=== PATIENT | male | born 1990 | race Caucasian/White ===

== ENCOUNTER 2024-11-07 18:07 | Emergency (ER) | payer OTHER, SELFPAY ==
[2024-11-07 18:10] VITALS: BP 166/105
[2024-11-07 18:28] LABS: % Basophils 0.4 % (0-2); % Eosinophils 0.5 % (0-6); % Immature Granulocytes 0.3 % (0-0.5); % Lymphocytes 32.2 % (20.5-51.1); % Monocytes 5.6 % (1.7-9.3); Absolute Eosinophils 0.1 10^3/uL (0-0.7); Absolute Lymphocytes 3.2 10^3/uL (1.2-3.4); Absolute Monocytes 0.6 10^3/uL (0.1-0.6); Absolute Neutrophils 6.1 10^3/uL (1.4-6.5); Hematocrit 43.8 % (39.0-52.0); Hemoglobin 15.9 g/dL (13.0-18.0); Mean Corp Hgb Conc. 36.3 g/dL (33.0-37.0); Mean Corpuscular Hgb 30.8 pg (27.0-31.0); Mean Corpuscular Volume 84.9 fL (80.0-94.0); Mean Platelet Volume 9.2 fL (7.4-10.4); Nucleated Red Blood Cells % 0 % (-); Platelet Count 300 10^3/uL (130-400); Red Blood Cell Count 5.16 10^6/uL (4.70-6.10); Red Cell Dist. Width 11.9 % (11.5-14.5); Urine Albumin Negative (Neg - Trace); Urine Bilirubin Negative (Negative); Urine Character Clear (Clear); Urine Color Yellow; Urine Glucose Negative (Negative); Urine Ketone Negative (Negative); Urine Leukocyte Negative (Negative); Urine Nitrite Negative (Negative); Urine Occult Blood Negative (Negative); Urine Specific Gravity 1.005 (<1.030); Urine Urobilinogen Negative (Neg - 1+)
[2024-11-07 18:42] LABS: ALT (SGPT) 44 U/L (0-50); AST (SGOT) 30 U/L (17-59); Albumin 5.1 g/dl (3.5-5.0); Alkaline Phosphatase 64 U/L (38-126); Blood Urea Nitrogen 9 mg/dl (9-20); Carbon Dioxide 26 mmol/L (22-30); Chloride 105 mmol/L (98-107); Glucose 93 mg/dl (70-99); Lipase 68 U/L (23-300); Potassium 3.9 mmol/L (3.5-5.1); Sodium 139 mmol/L (135-145); Total Bilirubin 2.3 mg/dl (0.2-1.3); Total Protein 7.8 g/dl (6.3-8.2); eGFR > 60.00
--- NOTE | 2024-11-07 20:03 | ED.GENMED ---
History of Present Illness
General
Chief Complaint: Abdominal Symptoms
Source: patient
Exam Limitations: none
Time Seen by Provider: 11/07/24 19:30
History of Present Illness
History of Present Illness:
34yoM with a history of anxiety presenting for evaluation of groin pain. Symptoms have been ongoing for about 3 weeks. He reports pain in his left groin and low back when he coughs. He is also having some discomfort in his scrotum. Patient
believes he has a hernia because he felt a lump yesterday. Pain is worse with movement of the left leg. Additionally, he is having abdominal bloating and some constipation. He has been seen by his PCP for his symptoms. He had a CT scan about 1.5
weeks ago which did not show any hernia as far as patient is aware. No fevers or difficulty urinating.
Past History
Past History
ED Past Medical History: Other (Substance abuse, maintained on Suboxone.)
ED Past Surgical History: None
Social History
Tobacco: Former smoker
Alcohol: Occasional
Drug: Former user
Personal: Single
Living: with family
Employment: Employed
Family History
Family History: Other (Noncontributory)
Phy Exam
General Physical Exam
General Presentation: well appearing and no apparent distress
General Skin: warm and dry
General Habitus: normal
General Mental: alert
ENT Exam
ENT Exam: normocephalic
Pulmonary Exam
Pulmonary Exam: no respiratory distress
Gastrointestinal Exam
Gastrointestinal Exam: non tender, soft and non distended
Genitourinary Exam Male
Exam Male: normal external genitalia, normal testicular exam, no testicular swelling and other (+L inguinal tenderness. No palpable hernia. No scrotal swelling or tenderness.)
Neurological Exam
Neurological Exam: alert
Jessica Coma Scale
Eye Opening: Spontaneous
Verbal Response: Oriented
Motor Response: Obeys Commands
GCS Total Score: 15
Skin Exam
Skin Exam: normal color and warm/dry
Psychiatric Exam
Psychiatric Exam: normal mood/affect
Course
Orders/Labs/Results
Orders:
Orders
11/07/24 18:20
Complete Blood Count/With Diff Urgent
Comprehensive Metabolic Panel Urgent
Lipase Urgent
Urinalysis Reflex To Culture Urgent
Date Specimen was Collected: 11/07/24
Time Specimen was Collected: 18:14
11/07/24 20:13
Scrotum US [US Scrotum] Urgent
Comment:
Reason For Exam: L testicular pain
US Groin (Imaging Only) LT Urgent
Comment:
Reason For Exam: pain, possible hernia
Abnormal Lab Results
11/07/24
18:20
Total Bilirubin 2.3 H mg/dl
(0.2-1.3)
Albumin 5.1 H g/dl
(3.5-5.0)
11/07/24 18:20
11/07/24 18:20
Vital Signs
Initial and Last Documented VS:
Initial Vital Signs
Pulse Resp BP Pulse Ox
82 18 166/105 99
11/07/24 18:10 11/07/24 18:10 11/07/24 18:10 11/07/24 18:10
Last Documented Vital Signs
Temp Pulse Resp BP Pulse Ox
98.2 F 82 18 166/105 99
11/07/24 18:12 11/07/24 18:10 11/07/24 18:10 11/07/24 18:10 11/07/24 18:10
MDM/Problems Addressed
Differential Diagnosis Includes:
34yoM here with L groin pain x 3 weeks. Worse with movement and coughing. Believes he has a hernia. Has been seen by PCP and had a CT scan recently which was reportedly normal. No urinary complaints. He is hypertensive with otherwise stable vitals.
He is well appearing in no distress. There is inguinal tenderness on exam. No skin changes or palpable hernia. Differential diagnosis includes: musculoskeletal, hernia, UTI
Initial ED plan: Labs obtained in triage. White count and renal function normal. UA bland without signs of infection. Will check groin and scrotal ultrasound.
*Critical Care Note
Total Time (30-74mins, 75-104mins- exclusive of procedures): Not Applicable
Update Note
Update Note:
Ultrasound shows several subcentimeter lymph nodes without suspicious features. No evidence of hernia and scrotal ultrasound negative. Suspect musculoskeletal pain. Supportive care discussed. Advised follow-up with PCP. Patient discharged in
stable condition.
ED Attending Note
-
Portions of this chart may have been created with voice recognition software.� Occasional wrong word or��sound alike� substitutions may have occurred due to the inherent limitations of voice recognition software.
Discharge Plan
Departure
Patient Disposition: Home (Routine Discharge)
Date of Disposition: 11/07/24
Time of Disposition: 21:36
Patient with high blood pressure during this ER visit?: Yes
Discharge Problem:
Left groin pain
Instructions: Groin Strain (DC)
Prescriptions:
No Action
buprenorphine-naloxone [Suboxone] 1 FILM film
1 film sublingual DAILY
alprazolam [Xanax] 0.5 mg tablet
0.5 mg PO TID PRN (Reason: anxiety) Qty: 7 0RF
Referrals:
Vear Jensen PA-C [Family Provider, Family Practice]
Activity Restrictions/Additional Instructions:
Take Tylenol and ibuprofen as needed for pain. Apply heat to affected area.
Please follow-up with your family doctor next week. Return to the ER with any new or worsening symptoms.
Interventions
Interventions:
*Risk Screen - Suicide Last Done: 11/07/24 18:12
*General Assessment Last Done: 11/07/24 18:12
*Neglect/Abuse Screening Last Done: 11/07/24 18:12
*ED- Fall Risk Assessment Last Done: 11/07/24 20:15
*ED COVID-19 Vaccine History Last Done: 11/07/24 20:15
*Nursing Disposition Last Done: 11/07/24 21:47
RE-Mtofnx-Hwecvfirpt Assessment Last Done: 11/07/24 20:15
Discharge Date and Time
Discharge Date/Time: 11/07/24 21:47
Print Language: SYRIAC
== END 2024-11-07 21:47 | disposition home or self-care (01) ==
LOC: EMR 18:07
PROVIDERS: Emergency Medicine; EMERGENCY PHYSICIAN Emergency Medicine; FAMILY PHYSICIAN Student in an Organized Health Care Education/Training Program
DX: R10.32 Left lower quadrant pain (principal); F41.9 Anxiety disorder, unspecified; K59.00 Constipation, unspecified; Z87.891 Personal history of nicotine dependence
CPT/HCPCS: 99284; 76870; 76882; 80053; 81003; 83690; 85025; 93976

== ENCOUNTER 2024-11-27 13:51 | Emergency (ER) | payer OTHER, SELFPAY ==
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
[2024-11-27 15:01] VITALS: BP 137/99
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
[2024-11-27 16:47] LABS: % Basophils 0.3 % (0-2); % Eosinophils 0.4 % (0-6); % Immature Granulocytes 0.3 % (0-0.5); % Lymphocytes 26.5 % (20.5-51.1); % Monocytes 7.3 % (1.7-9.3); % Neutrophils 65.2 % (42.2-75.2); Absolute Monocytes 0.8 10^3/uL (0.1-0.6); Absolute Neutrophils 7.3 10^3/uL (1.4-6.5); Hemoglobin 16.4 g/dL (13.0-18.0); Mean Corp Hgb Conc. 36.4 g/dL (33.0-37.0); Mean Corpuscular Hgb 31.2 pg (27.0-31.0); Mean Corpuscular Volume 85.6 fL (80.0-94.0); Mean Platelet Volume 9.3 fL (7.4-10.4); Nucleated Red Blood Cells % 0 % (-); Platelet Count 293 10^3/uL (130-400); Red Blood Cell Count 5.26 10^6/uL (4.70-6.10); Red Cell Dist. Width 12.2 % (11.5-14.5); White Blood Cell Count 11.2 10^3/uL (4.8-10.8)
[2024-11-27] MEDS: NICODERM TRANSDERMAL 21 MG TRANSDERM (17:02)
[2024-11-27 17:12] LABS: ALT (SGPT) 43 U/L (0-50); AST (SGOT) 51 U/L (17-59); Albumin 5.3 g/dl (3.5-5.0); Alkaline Phosphatase 59 U/L (38-126); Blood Urea Nitrogen 12 mg/dl (9-20); Carbon Dioxide 26 mmol/L (22-30); Chloride 104 mmol/L (98-107); Creatine Phosphokinase 1016 U/L (55-170); Glucose 121 mg/dl (70-99); Potassium 3.7 mmol/L (3.5-5.1); Sodium 141 mmol/L (135-145); Total Bilirubin 2.4 mg/dl (0.2-1.3); Total Protein 8.1 g/dl (6.3-8.2); eGFR > 60.00
[2024-11-27 17:14] LABS: Alcohol None Detected
[2024-11-27] MEDS: ATIVAN 2 MG IM (17:31)
[2024-11-27] MEDS: HALDOL 5 MG IM (17:31)
[2024-11-27 18:00] VITALS: BP 143/81
[2024-11-27 22:30] VITALS: BP 139/81
--- NOTE | 2024-11-27 22:49 | EDRN ---
Report received, introduced myself to patient, patient was calm when talking with me, allowed me to get vital signs which are stable, we discussed the restraints and goal of getting them off, removed the right wrist restraint and patient rolled onto
his left side, offered him some water which he accepted, will continue to re-assess for the need for restraints on and to try to remove them.
[2024-11-28] MEDS: ATIVAN 2 MG PO (00:33)
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
--- NOTE | 2024-11-28 04:45 | EDRN ---
Patient restless and trying to take off his restraint, and getting little restless and agitated with it, patient was spoken to in a calming voice and provided with another warm blanket
[2024-11-28 07:15] VITALS: BP 130/83
[2024-11-28 07:51] LABS: Amphetamines Negative (Negative); Barbiturates Negative (Negative); Benzodiazepines Positive (Negative)
[2024-11-28 07:52] LABS: Buprenorphine Negative (Negative); Cocaine Negative (Negative); Marijuana Negative (Negative); Methadone Negative (Negative); Methamphetamines Negative (Negative); Opiates Negative (Negative); Phencyclidine Negative (Negative); Tricyclic Antidepressants Negative (Negative)
[2024-11-28 08:11] LABS: Creatine Phosphokinase 1142 U/L (55-170)
[2024-11-28 08:12] LABS: Fentanyl, Urine Negative (Negative)
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
[2024-11-28] MEDS: ATIVAN 1 MG PO (09:17)
[2024-11-28] MEDS: HALDOL 5 MG PO (09:18)
[2024-11-28] MEDS: NICORETTE 4 MG PO (09:19)
[2024-11-28 11:02] VITALS: BP 130/74
[2024-11-28] MEDS: NICODERM TRANSDERMAL TRANSDERM (11:41)
[2024-11-28 13:23] LABS: Creatine Phosphokinase 1436 U/L (55-170)
[2024-11-28 14:04] VITALS: BP 128/72
--- NOTE | 2024-11-28 15:24 | ED.CRISIS ---
ED Crisis Note
ED Crisis Note
Subjective:
34-year-old male presented with acute psychosis. Calm cooperative currently but was initially requiring restraints both chemical and physical.
Objective:
Patient resting comfortably in bed. Not in acute distress. Vital signs are normal.
Assessment/Plan:
34-year-old male presents with psychosis. Much more calm and cooperative now. His initial medical assessment did reveal mild rhabdomyolysis. He was medically cleared for psychiatric placement however despite reassurance to psychiatric facilities
that he has normal renal function and is medically cleared, they are hesitant to take him with elevated CPK. Will continue to trend CPK. Provide IV fluids. Discussed with hospitalist for consultation.
[2024-11-28] MEDS: NSS 1000 IV ×2 (15:36→18:19)
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
[2024-11-28] MEDS: NICODERM TRANSDERMAL 21 MG TRANSDERM (17:40)
[2024-11-28 17:56] VITALS: BP 128/70
[2024-11-28 18:07] LABS: Creatine Phosphokinase 1374 U/L (55-170)
[2024-11-28 19:53] LABS: Creatine Phosphokinase 1311 U/L (55-170)
[2024-11-28 20:30] VITALS: BP 122/74
[2024-11-28 23:42] VITALS: BP 151/88
[2024-11-29] MEDS: NSS IV (02:58)
[2024-11-29 08:30] VITALS: BP 124/68
[2024-11-29 09:09] LABS: Creatine Phosphokinase 1489 U/L (55-170)
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
[2024-11-29] MEDS: NICODERM TRANSDERMAL TRANSDERM (17:28)
--- NOTE | 2024-11-29 17:56 | EDRN ---
Pt calm and cooperative, eating dinner, didn't want his Nicotine patch. Pt asking to take a shower, per charge gang weigher will wait for available room with a shower, pt made aware.
[2024-11-29 20:56] LABS: Creatine Phosphokinase 1346 U/L (55-170)
[2024-11-29 21:18] VITALS: BP 138/82
[2024-11-30 03:41] VITALS: BP 131/79
[2024-11-30] MEDS: ATIVAN 2 MG PO ×2 (04:24→09:22)
[2024-11-30 04:54] LABS: Creatine Phosphokinase 892 U/L (55-170)
--- NOTE | 2024-11-30 06:24 | ED.CRISIS ---
ED Crisis Note
ED Crisis Note
Subjective:
Chart was reviewed. Apparently they are pending acceptance for the trending CPK. Clearly at this level this is not an issue medically.
Objective:
At times pacing around the hallway. Nontoxic in appearance
Assessment/Plan:
34-year-old male presents with psychosis. Pending acceptance for very mild rhabdomyolysis. Discussed with crisis team. They are looking into other facilities. They expect an answer from to other facilities in the next hour or so. Reviewing his
chart he has not had any ongoing medication for his psychosis. If he is not placed this morning we will recontact psychiatry for possible ongoing medication use.
[2024-11-30 12:00] VITALS: BP 125/94
== END 2024-11-30 13:46 ==
LOC: EMR 13:51
PROVIDERS: Emergency Medicine; Physician Assistant Medical; CONSULT PHYSICIAN Hospitalist; EMERGENCY PHYSICIAN Emergency Medicine; FAMILY PHYSICIAN Student in an Organized Health Care Education/Training Program
DX: F23 Brief psychotic disorder (principal); M62.82 Rhabdomyolysis; F17.200 Nicotine dependence, unspecified, uncomplicated; Z78.1 Physical restraint status
CPT/HCPCS: 96372; 99285; 80053; 80306; 80307; 82077; 82550; 85025